=== PATIENT | female | born 1960 ===

== ENCOUNTER 2022-12-29 06:45 | Observation (INO) ==
--- NOTE | 2022-12-29 12:09 | History & Physical Report ---
Date of Service December 29, 2022 Assessment & Plan (1) Nausea: Plan: Unclear cause. Pt transferred for GI to consider ERCP however normal LFTs and no substantial RUQ pain. Will complete workup with MRCP. Stool PCR to assess for infective diarrheal illness NPO Ondansetron for nauseaa (2) Abdominal pain: (3) Anxiety: Plan: Continue Lexapro and duloxetine (4) Asthma: Plan: No current exacerbation suspected Continue Advair diskus or hospital formulary equivalent (5) Constipation: Plan: Given current diarrhea will d/c her docusate (6) GERD (gastroesophageal reflux disease): Plan: Continue pantoprazole, famotidine. Possible cause of symptoms above. (7) Osteoporosis: (8) Tobacco user: Plan: Nicotine patch Discussed smoking cessation (9) Urinary incontinence: (10) Allergic rhinitis: Plan VTE Prophylaxis - low risk Diet - NPO Disposition - observation status to med/tele Admission and Anticipated Discharge Date Admission Date: December 29, 2022 History of Present Illness Chief Complaint: Abdominal pain, nausea vomiting Primary Care Provider: NO PCP Kevin Harry is a 62 year old female who presents as a direct admission from [facility] due to nausea, vomiting, diarrhea, abdominal pain. She reports her symptoms started on Sunday and progressively getting worse. Only able to drink water on Sunday however even this has started causing her problems the last few days. She reports a significant history of thrush although also feels she has this currently but only homogenous white substance on her tongue and nowhere else. She notes some change in taste during that time. Diarrhea episode on Sunday but intermittent since then. When ever she eats she has loose stool - the last time she ate solid food was Sunday. She reportedly had some wheezing and shortness of breath prior to arriving at [facility] ER but this resolved without intervention and she currently denies any shortness of breath. Intermittently having central abdominal pain after eating - she reports having some problems with this ever since she had a cholecystectomy but has been worse recently - no current abdominal pain. In [facility] her CBD was dilated on CT (although was notable suspected due to post cholecystectomy status) and concern with her elevated WBC and abdominal pain for choledocholithiasis with ERCP coverage therefore her case was discussed with gastroenterology here and advised admission under the hospitalist. Allergies Allergy/AdvReac Type Severity Reaction Status Date / Time peanut Allergy Verified 12/29/22 12:18 codeine AdvReac Verified 12/29/22 12:18 metronidazole [From Flagyl] AdvReac Verified 12/29/22 12:18 Home Medications Medication Instructions Recorded Confirmed Type Vitamin D3 1,000 units PO DAILY 12/29/22 12/29/22 History Xyzal 5 mg PO DAILY 12/29/22 12/29/22 History ascorbic acid (vitamin C) 500 mg 500 mg PO DAILY 12/29/22 12/29/22 History tablet (Vitamin C) atorvastatin 40 mg tablet 40 mg PO DAILY 12/29/22 12/29/22 History azelastine 137 mcg (0.1 %) nasal 2 spray intranasal DAILY PRN 12/29/22 12/29/22 History spray aerosol Congestion baclofen 10 mg tablet 10 mg PO TID PRN Muscle Spasm 12/29/22 12/29/22 History ggdnzit-jnystzhgd-sahf 1 tab DAILY 12/29/22 12/29/22 History clotrimazole 10 mg charla 10 mg mucous membrane 5XD 12/29/22 12/29/22 History diclofenac sodium 75 mg 75 mg PO BID PRN Pain 12/29/22 12/29/22 History tablet,delayed release docusate sodium 100 mg capsule 100 mg PO BID 12/29/22 12/29/22 History duloxetine 60 mg capsule,delayed 60 mg PO BID 12/29/22 12/29/22 History release escitalopram oxalate 10 mg tablet 10 mg PO BID 12/29/22 12/29/22 History famotidine 20 mg tablet 20 mg PO BID 12/29/22 12/29/22 History fluticasone 250 mcg-salmeterol 50 1 inh inhalation BID 12/29/22 12/29/22 History mcg/dose blistr powdr for inhalation (Advair Diskus) fluticasone 250 mcg-salmeterol 50 1 inh inhalation BID 12/29/22 12/29/22 History mcg/dose blistr powdr for inhalation (Advair Diskus) gabapentin 600 mg tablet 600 mg PO TID 12/29/22 12/29/22 History montelukast 10 mg tablet 10 mg PO DAILY 12/29/22 12/29/22 History ondansetron 4 mg disintegrating 4 mg PO Q4H PRN Nausea 12/29/22 12/29/22 History tablet pantoprazole 40 mg tablet,delayed 40 mg PO BID 12/29/22 12/29/22 History release Past Med/Surg History Medical History Allergic rhinitis Anxiety Asthma Back pain Constipation Degenerative arthritis Finger pain GERD (gastroesophageal reflux disease) Heart murmur Osteoporosis Rotator cuff tear Tobacco user Urinary incontinence Surgical History History of arthroscopy of shoulder 07/23/2018 and 01/23/2017 History of blepharoplasty 07/12/2022 History of colonoscopy 01/30/2018 History of esophagogastroduodenoscopy Social History Smoking Status: Current every day smoker Cigarettes Per Day: 15; Hx Alcohol Use: Yes Alcohol type: beer Hx Substance Use: No Preferred Language: Citizen Of [place] Communication Ability: Effective Account Underwriter Required: No Beliefs That Will Affect Care: None Current Living Situation: Alone Other Information That Helps Us Care for You: No Feels Safe at Home: Yes Safety Concerns: Feels Safe At This Time Assistive Devices: Glasses Review of Systems Review of Systems: All systems reviewed & are unremarkable except as noted in HPI & below Physical Exam Constitutional: WD/WN, vitals as above Eyes: PERRL, conjunctivae normal, anicteric sclerae Respiratory: normal respiratory effort, lungs clear to auscultation Cardiovascular: RRR, no murmur, no edema Gastrointestinal (Abdomen): Inspection/Auscultation: abdomen normal to inspection; abdomen not distended Percussion/Palpation: + abdomen tender (mild upper) and abdomen soft Musculoskeletal: no cyanosis or clubbing, extremities motor strength 5/5 Skin: no rashes, warm and dry Neurologic: moves all extremities and awake; not confused Psychiatric: A+Ox3, euthymic affect Results & Data Results & Data Vital Signs (Past 12 Hours) Vital Signs Temp Pulse Resp BP Pulse Ox O2 Del Method 12/29/22 11:55 36.7 C 78 18 153/79 H 98 Room Air Laboratory Results SARS COV-2 PCR not detected eGFR 88, Glucose 114, BUN 8.5, Cr 0.77, Total Protein 8.0, Albumin 4.5, Globulin 3.5, A/G 1.3, Calcium 9.1, T Hugo 1.0, Na 129, K 2.8, Cl 98, CO2 21, AGAP 12.8, ALP 72, AST 24, ALT 26, Lactate 1.2, Lipase 58, Mg 1.8, HS Trop 11 -> 12 Hgb 16.4, Hct 45.7, MCV 88.7, MCH 31.8, MCHC 35.9, Plt 530, RBC 5.15, WBC 20.[address] A/P with IV contrast Impression: No acute intra-abdominal or pelvic pathology. Post cholecystectomy CBD dilation and prominent pancreatic duct giving a double duct sign. Further evaluation by MRCP is advised. Medications Administered ER Medications Given (at [place]): Potassium chloride 10 meq IV 06:02 NSS @ 125ml/hr 04:48 Metronidazole 500mg IV 04:57 Cefepime 2g IV 04:57 NSS 1L bolus 03:54 Potassium chloride 10meq IV 03:54 Clotrimazole 10mg PO 00:20 Ondansetron 4mg IV 23:34 NSS 1L bolus 23:35 Code Status & VTE Plan Code Status Full VTE Prophylaxis Plan VTE Prophylaxis will be ordered: No PG Care Time/CCT Total # of Minutes Spent Total Time Spent: 120 Total Time Spent with Patient: Total time spent is greater than 50% in coordination of care (as documented) at patient's floor/unit and/or counseling patient: Coding Level of Care Code 34705 INT INP/OBS CARE 3/75MIN Diagnoses Nausea R11.0 Abdominal pain R10.9 Anxiety F41.9 Asthma J45.909 Constipation K59.00 GERD (gastroesophageal reflux disease) K21.9 Osteoporosis M81.0 Tobacco user Z72.0 Urinary incontinence R32 Allergic rhinitis J30.9
--- NOTE | 2022-12-29 12:36 | XRay Report ---
XR chest 1V portable CLINICAL HISTORY: elevated WBC TECHNIQUE: Single frontal radiograph of the chest was obtained. Comparison: None available at the time of this dictation. FINDINGS: No lines and tubes are seen. The cardiomediastinal silhouette is normal. The lungs are clear. No evid ence of pleural effusion or pneumothorax. IMPRESSION: No acute chest disease. ACT 112: Negative or not required by law. Electronically signed by: Charlie Lemus M.D. 12/29/2022 12:35 PM
[2022-12-29 13:15] LABS: Basophils # (auto) 0.06 K/uL (0-0.2); Basophils % (auto) 0.4 %; Eosinophils # (auto) 0.01 K/uL (0-0.50); Eosinophils % (auto) 0.1 %; Hemoglobin 13.6 g/dl (12.0-16.0); Immature Granulocytes # (auto) 0.04 K/uL (0.01-0.20); Immature Granulocytes % (auto) 0.3 %; Lymphocytes # (auto) 2.58 K/uL (1.2-3.4); Lymphocytes % (auto) 17.4 %; Mean Corpuscular Hemoglobin 31.6 pg (25.0-34.0); Mean Corpuscular Hgb Conc 35.8 g/dL (32.0-36.0); Mean Corpuscular Volume 88.4 fL (80.0-100.0); Mean Platelet Volume 9.5 fL (9.4-12.4); Monocytes # (auto) 1.21 K/uL (0.11-0.59); Monocytes % (auto) 8.1 %; Neutrophils # (auto) 10.96 K/uL (1.40-6.50); Neutrophils % (auto) 73.7 %; Platelet Count 450 K/uL (130-400); RDW Coefficient of Variation 12.9 % (11.5-14.5); RDW Standard Deviation 41.5 fL (36.4-46.3); White Blood Count 14.86 K/ul (4.8-10.8)
[2022-12-29] MEDS ORDERED: LACTATED RINGER'S 1,000 ML IV SCH (13:15)
[2022-12-29 13:32] LABS: Albumin Globulin Ratio 1.5 (0.9-2); Albumin Level 4.1 gm/dl (3.4-5.0); BUN Creatinine Ratio 12.7 (10-20); Bilirubin,Total 0.8 mg/dl (0.2-1.0); Calcium 8.8 mg/dl (8.6-10.3); Creatinine Clr Calc Pharmacy 74.7 ml/min; Est GFR (Non-African American) 97.5 ml/min; Globulin 2.7 gm/dl (2.5-4.0); Magnesium 1.9 mg/dl (1.7-2.4); Potassium 3.5 mmol/L (3.5-5.1); Total Protein 6.8 gm/dl (6.0-8.3)
[2022-12-29 13:41] LABS: INR 0.9 (0.9-1.1); Partial Thromboplastin Time 27.4 Seconds (21.0-31.0); Prothrombin Time 10.3 Seconds (9.0-12.0)
[2022-12-29] MEDS: CLOTRIMAZOLE 10 MG TROCHE BUCCAL SCH ×2 (15:24→20:37)
[2022-12-29 16:21] LABS: Appearance Urine Clear (Clear); Bilirubin Urine Negative (Negative); Blood Urine Negative (Negative); Color Urine Yellow; Glucose Urine UA Negative (Negative); Ketones Urine 4+ (Negative); Leukocyte Esterase Urine Negative (Negative); Nitrite Urine Negative (Negative); Protein Urine Negative (Negative); Specific Gravity Urine 1.026 (1.000-1.030); Urobilinogen Urine Negative (Negative)
[2022-12-29] MEDS ORDERED: ONDANSETRON INJ 2 MG/ML 2 ML VIAL IV PRN (17:59)
[2022-12-29] MEDS: D5W AND 1/2NSS + 20MEQ KCL 20 MEQ/1,000 ML BAG IV SCH (18:06)
--- NOTE | 2022-12-29 19:04 | Magnetic Resonance Report ---
MRCP CLINICAL HISTORY: Common bile duct dilatation. COMPARISON STUDY: Abdominal CT dated 12/29/2022. TECHNIQUE: Abdominal MRCP is performed utilizing various T2-weighted sequences in the axial and coron al planes. IV contrast was not administered for this examination. 3-D reformats are created and asses sed. Diffusion-weighted imaging was performed. The examination is degraded by motion artifact. FINDINGS: The gallbladder is surgically absent. There is no intrahepatic biliary ductal dilatation. The common bile duct is dilated measuring up to 9 mm in diameter. No true luminal filling defects are seen to gomez ggest choledocholithiasis. The pancreatic duct is normal in caliber. The unenhanced liver, spleen, adrenal glands, and pancreas are grossly unremarkable. The kidneys are normal in size and without hydronephrosis. A 10 mm cyst is noted in the left kidney. There is no abdo hector ascites. No pleural effusion is seen. The abdominal aorta is normal in course and caliber. No b owel obstruction is identified. IMPRESSION: 1. Normal MRCP noting status post cholecystectomy. 2. Mild dilatation of the common bile duct is likely related to prior cholecystectomy. There is no ev idence of choledocholithiasis. Dictated: 12/29/2022 5:40 PM Transcribed: 12/29/2022 6:00 PM Saran [id number] Cristiana [id number] Electronically signed by: Ron White M.D. 12/29/2022 7:03 PM
[2022-12-29] MEDS: DULoxetine HCL 60 MG CAP PO SCH (20:39)
[2022-12-29] MEDS: ESCITALOPRAM OXALATE 10 MG TAB PO SCH (20:40)
[2022-12-29] MEDS: GABAPENTIN 600 MG TAB PO SCH (20:40)
[2022-12-29] MEDS: ACETAMINOPHEN 500 MG TAB PO PRN (20:40)
[2022-12-29] MEDS: FAMOTIDINE 20 MG TAB PO SCH (20:40)
[2022-12-29] MEDS: MELATONIN 3 MG TAB PO PRN (20:40)
[2022-12-29] MEDS: PANTOprazole 40 MG TAB PO SCH (21:09)
[2022-12-29 23:43] LABS: Adenovirus F 40/41 PCR Not Detected (NotDetected); Astrovirus PCR Not Detected (NotDetected); Campylobacter PCR Not Detected (NotDetected); Cryptosporidium PCR Not Detected (NotDetected); Cyclospora cayetanensis PCR Not Detected (NotDetected); Entamoeba histolytica PCR Not Detected (NotDetected); Enteroaggregative E.coli(EAEC) Not Detected (NotDetected); Enteropathogenic E.coli (EPEC) Not Detected (NotDetected); Enterotoxigenic E.coli (ETEC) Not Detected (NotDetected); Giardia lamblia PCR Not Detected (NotDetected); Norovirus GI/GII PCR Not Detected (NotDetected); Plesiomonas shigelloides PCR Not Detected (NotDetected); Rotavirus A PCR Not Detected (NotDetected); Salmonella PCR Not Detected (NotDetected); Sapovirus PCR Not Detected (NotDetected); Shiga-like Toxin E.coli (STEC) Not Detected (NotDetected); Shigella/Enteroinvasive E.coli Not Detected (NotDetected); Vibrio cholerae PCR Not Detected (NotDetected); Vibrio species PCR Not Detected (NotDetected); Yersinia enterocolitica PCR Not Detected (NotDetected)
[2022-12-30] MEDS: CLOTRIMAZOLE 10 MG TROCHE BUCCAL SCH ×6 (01:06→22:10)
[2022-12-30] MEDS: D5W AND 1/2NSS + 20MEQ KCL 20 MEQ/1,000 ML BAG IV SCH ×3 (02:43→18:10)
[2022-12-30 07:11] LABS: Basophils # (auto) 0.11 K/uL (0-0.2); Eosinophils # (auto) 0.11 K/uL (0-0.50); Hematocrit (blood only) 35.2 % (37.0-47.0); Hemoglobin 12.7 g/dl (12.0-16.0); Immature Granulocytes # (auto) 0.03 K/uL (0.01-0.20); Immature Granulocytes % (auto) 0.3 %; Lymphocytes # (auto) 3.08 K/uL (1.2-3.4); Lymphocytes % (auto) 27.6 %; Mean Corpuscular Hemoglobin 32.2 pg (25.0-34.0); Mean Corpuscular Hgb Conc 36.1 g/dL (32.0-36.0); Mean Corpuscular Volume 89.1 fL (80.0-100.0); Mean Platelet Volume 9.6 fL (9.4-12.4); Monocytes # (auto) 1.28 K/uL (0.11-0.59); Monocytes % (auto) 11.5 %; Neutrophils # (auto) 6.56 K/uL (1.40-6.50); Neutrophils % (auto) 58.6 %; Platelet Count 389 K/uL (130-400); RDW Coefficient of Variation 12.5 % (11.5-14.5); Red Blood Count 3.95 M/uL (4.20-5.40); White Blood Count 11.17 K/ul (4.8-10.8)
[2022-12-30 07:32] LABS: Albumin Globulin Ratio 1.5 (0.9-2); Albumin Level 3.3 gm/dl (3.4-5.0); BUN Creatinine Ratio 10.9 (10-20); Bilirubin,Total 0.6 mg/dl (0.2-1.0); Calcium 8.2 mg/dl (8.6-10.3); Creatinine Clr Calc Pharmacy 85.5 ml/min; Est GFR (African American) 118.2 ml/min; Est GFR (Non-African American) 101.9 ml/min; Globulin 2.2 gm/dl (2.5-4.0); Potassium 3.7 mmol/L (3.5-5.1); Total Protein 5.5 gm/dl (6.0-8.3)
[2022-12-30] MEDS: ATORVASTATIN 40 MG TAB PO SCH (07:50)
[2022-12-30] MEDS: GABAPENTIN 600 MG TAB PO SCH ×3 (07:50→20:25)
[2022-12-30] MEDS: ESCITALOPRAM OXALATE 10 MG TAB PO SCH ×2 (07:50→20:25)
[2022-12-30] MEDS: MONTELUKAST SODIUM 10 MG TABLET PO SCH (07:50)
[2022-12-30] MEDS: PANTOprazole 40 MG TAB PO SCH ×2 (07:50→20:25)
[2022-12-30] MEDS: DULoxetine HCL 60 MG CAP PO SCH ×2 (07:51→20:25)
[2022-12-30] MEDS: FAMOTIDINE 20 MG TAB PO SCH ×2 (07:51→20:25)
[2022-12-30] MEDS: FLUTICASONE/VILANTEROL 200/25MCG 14 PUFFS/INHALER INH SCH (07:52)
[2022-12-30] MEDS: NICOTINE 21 MG/24 HR TDSY TD SCH (07:52)
--- NOTE | 2022-12-30 10:21 | Gastrointestinal Consultation ---
Date of Consultation December 30, 2022 Assessment & Plan (1) Abdominal pain: I think she probably had food poisoning at the onset of her problems. She is describing more of a globus sensation to me and has had EGD for it in the past. I don't think repeat is necessary as yet because she can swallow she just "feels a cotton ball". Since she has had yeast in her esophagus I see no problem treating her empirically for trevor so she can get better and get out of here. This seems to be the last thing keeping her in the hospital. History of Present Illness Reason for Consultation: abominal pain Attending Physician: Farzana Dave MD History of Present Illness 62 year old female who tells me that this past Sunday she developed abdominal pain and diarrhea. She blames it on having a few drinks. She ate "wings and pizza" for lunch that day. She had profuse diarrhea and nausea but no vomiting. She improved slowly over the next two days and was able to eat Sunday and Sunday, albeit only a small amount. It seems that she got worse on and was seen in ER at [facility]. ER doctor called me about transfer for ERCP but when he told me her LFT's were normal I told him that wasn't necessary. He then elaborated that she had these symptoms and abdominal pain without a cause and they had no GI available. I suggested he talk to Hospitalist and so she was transferred. Today she is feeling well. She also has this "cotton ball" in her throat. She has had EGD for this before and was told she had yeast in her esop hagus. She does not have any pain when she swallows though. Food will go down though. Allergies Allergy/AdvReac Type Severity Reaction Status Date / Time peanut Allergy Verified 12/29/22 12:18 codeine AdvReac Verified 12/29/22 12:18 metronidazole [From Flagyl] AdvReac Verified 12/29/22 12:18 Home Medications Medication Instructions Recorded Confirmed Type Vitamin D3 1,000 units PO DAILY 12/29/22 12/29/22 History Xyzal 5 mg PO DAILY 12/29/22 12/29/22 History ascorbic acid (vitamin C) 500 mg 500 mg PO DAILY 12/29/22 12/29/22 History tablet (Vitamin C) atorvastatin 40 mg tablet 40 mg PO DAILY 12/29/22 12/29/22 History azelastine 137 mcg (0.1 %) nasal 2 spray intranasal DAILY PRN 12/29/22 12/29/22 History spray aerosol Congestion baclofen 10 mg tablet 10 mg PO TID PRN Muscle Spasm 12/29/22 12/29/22 History eatsbue-ehbzwvhgv-vscy 1 tab DAILY 12/29/22 12/29/22 History clotrimazole 10 mg charla 10 mg mucous membrane 5XD 12/29/22 12/29/22 History diclofenac sodium 75 mg 75 mg PO BID PRN Pain 12/29/22 12/29/22 History tablet,delayed release docusate sodium 100 mg capsule 100 mg PO BID 12/29/22 12/29/22 History duloxetine 60 mg capsule,delayed 60 mg PO BID 12/29/22 12/29/22 History release escitalopram oxalate 10 mg tablet 10 mg PO BID 12/29/22 12/29/22 History famotidine 20 mg tablet 20 mg PO BID 12/29/22 12/29/22 History fluticasone 250 mcg-salmeterol 50 1 inh inhalation BID 12/29/22 12/29/22 History mcg/dose blistr powdr for inhalation (Advair Diskus) fluticasone 250 mcg-salmeterol 50 1 inh inhalation BID 12/29/22 12/29/22 History mcg/dose blistr powdr for inhalation (Advair Diskus) gabapentin 600 mg tablet 600 mg PO TID 12/29/22 12/29/22 History montelukast 10 mg tablet 10 mg PO DAILY 12/29/22 12/29/22 History ondansetron 4 mg disintegrating 4 mg PO Q4H PRN Nausea 12/29/22 12/29/22 History tablet pantoprazole 40 mg tablet,delayed 40 mg PO BID 12/29/22 12/29/22 History release Patient History Medical History Allergic rhinitis Anxiety Asthma Back pain Constipation Degenerative arthritis Finger pain GERD (gastroesophageal reflux disease) Heart murmur Osteoporosis Rotator cuff tear Tobacco user Urinary incontinence Surgical History History of arthroscopy of shoulder 07/23/2018 and 01/23/2017 History of blepharoplasty 07/12/2022 History of colonoscopy 01/30/2018 History of esophagogastroduodenoscopy 2* Social History Smoking Status: Current every day smoker Cigarettes Per Day: 15; Hx Alcohol Use: Yes Alcohol type: beer Hx Substance Use: No Preferred Language: Thai Communication Ability: Effective Dress Cutter Required: No Beliefs That Will Affect Care: None Current Living Situation: Alone Other Information That Helps Us Care for You: No Feels Safe at Home: Yes Safety Concerns: Feels Safe At This Time Assistive Devices: Glasses Review of Systems Review of Systems: All systems reviewed & are unremarkable except as noted in HPI & below Physical Exam Constitutional: WD/WN, vitals as above no acute distress Eyes: PERRL, conjunctivae normal, anicteric sclerae ENMT: external ear and nose normal, oropharynx normal Neck: trachea midline, no thyromegaly Respiratory: normal respiratory effort, lungs clear to auscultation Cardiovascular: RRR, no murmur, no edema Gastrointestinal (Abdomen): normal bowel sounds, soft, nontender, no hepatosplenomegaly Musculoskeletal: Extremities: no cyanosis and no clubbing Skin: no rashes, warm and dry Neurologic: PERRL, EOMI, accommodation nl, no face palsy, no dysarthria Psychiatric: Orientation: alert and oriented x 3 Results & Data Vital Signs (Past 12 Hours) Vital Signs Temp Pulse Pulse Resp BP BP Pulse Ox 12/30/22 08:01 36.5 C 74 18 162/85 H 98 12/30/22 07:35 69 12/30/22 03:11 36.6 C 79 18 134/70 96 12/30/22 01:41 73 12/30/22 01:41 12/29/22 22:33 36.8 C 70 18 156/74 H 94 O2 Del Method 12/30/22 08:01 Room Air 12/30/22 07:35 12/30/22 03:11 Room Air 12/30/22 01:41 12/30/22 01:41 Room Air 12/29/22 22:33 Room Air Laboratory Results 12/30/22 12/30/22 12/29/22 Range/Units 06:33 06:33 22:15 WBC 11.17 H (4.8-10.8) K/ul RBC 3.95 L (4.20-5.40) M/uL Hgb 12.7 (12.0-16.0) g/dl Hct 35.2 L (37.0-47.0) % MCV 89.1 (80.0-100.0) fL MCH 32.2 (25.0-34.0) pg MCHC 36.1 H (32.0-36.0) g/dL RDW Std Deviation 41.0 (36.4-46.3) fL RDW Coeff of Saúl 12.5 (11.5-14.5) % Plt Count 389 (130-400) K/uL MPV 9.6 (9.4-12.4) fL Immature Gran % (Auto) 0.3 % Neut % (Auto) 58.6 % Lymph % (Auto) 27.6 % [place] % (Auto) 11.5 % Eos % (Auto) 1.0 % Baso % (Auto) 1.0 % Neut # (Auto) 6.56 H (1.40-6.50) K/uL Lymph # (Auto) 3.08 (1.2-3.4) K/uL [place] # (Auto) 1.28 H (0.11-0.59) K/uL Eos # (Auto) 0.11 (0-0.50) K/uL Baso # (Auto) 0.11 (0-0.2) K/uL Immature Gran # (Auto) 0.03 (0.01-0.20) K/uL PT (9.0-12.0) Seconds INR (0.9-1.1) APTT (21.0-31.0) Seconds PTT Ratio Sodium 138 (136-145) mmol/L Potassium 3.7 (3.5-5.1) mmol/L Chloride 112 H (98-107) mmol/L Carbon Dioxide 23 (21-32) mmol/L Anion Gap 3 (3-11) BUN 6 (6-23) mg/dl Creatinine 0.55 L (0.6-1.2) mg/dl Est Cr Clr Drug Dosing 85.5 ml/min Est GFR ( Amer) 118.2 ml/min Est GFR (Non-Af Amer) 101.9 ml/min BUN/Creatinine Ratio 10.9 (10-20) Glucose 116 H (70-99(Fasting)) mg/dl Lactate (0.4-2.0) mmol/L Calcium 8.2 L (8.6-10.3) mg/dl Magnesium (1.7-2.4) mg/dl Total Bilirubin 0.6 (0.2-1.0) mg/dl AST 16 (13-39) U/L ALT 11 (7-52) U/L Alkaline Phosphatase 45 (34-104) U/L Total Protein 5.5 L (6.0-8.3) gm/dl Albumin 3.3 L (3.4-5.0) gm/dl Globulin 2.2 L (2.5-4.0) gm/dl Albumin/Globulin Ratio 1.5 (0.9-2) Lipase (11-82) U/L Procalcitonin (0-0.5) ng/ml Urine Color Urine Appearance (Clear) Urine pH (4.5-7.5) Ur Specific [place] (1.000-1.030) Urine Protein (Negative) Urine Glucose (UA) (Negative) Urine Ketones (Negative) Urine Blood (Negative) Urine Nitrite (Negative) Urine Bilirubin (Negative) Urine Urobilinogen (Negative) Ur Leukocyte Esterase (Negative) Stl C. cayetanensis PCR Not Detected (NotDetected) Stool Rotavirus A PCR Not Detected (NotDetected) Stl Adenov F 40/41 PCR Not Detected (NotDetected) Stool Astrovirus (PCR) Not Detected (NotDetected) Stool Campylobacter PCR Not Detected (NotDetected) Stool Cryptosporidium PCR Not Detected (NotDetected) Stl E.coli Shiga Tox PCR Not Detected (NotDetected) Stl Enterotoxigenic E PCR Not Detected (NotDetected) Stool EPEC (PCR) Not Detected (NotDetected) Stool EAEC (PCR) Not Detected (NotDetected) Stl E. histolytica PCR Not Detected (NotDetected) Stool Giardia Lamblia PCR Not Detected (NotDetected) Stool Salmonella PCR Not Detected (NotDetected) Stool Sapovirus (PCR) Not Detected (NotDetected) Stl P. shigelloides PCR Not Detected (NotDetected) Stl Shigella/EIEC PCR Not Detected (NotDetected) St Y.enterocolitica PCR Not Detected (NotDetected) Stool Vibrio (PCR) Not Detected (NotDetected) Stl Vibrio cholerae PCR Not Detected (NotDetected) Stl Norovirus GI/GII PCR Not Detected (NotDetected) Hepatitis C Ab (EIA) 12/29/22 12/29/22 12/29/22 Range/Units 15:27 12:40 12:24 WBC (4.8-10.8) K/ul RBC (4.20-5.40) M/uL Hgb (12.0-16.0) g/dl Hct (37.0-47.0) % MCV (80.0-100.0) fL MCH (25.0-34.0) pg MCHC (32.0-36.0) g/dL RDW Std Deviation (36.4-46.3) fL RDW Coeff of Saúl (11.5-14.5) % Plt Count (130-400) K/uL MPV (9.4-12.4) fL Immature Gran % (Auto) % Neut % (Auto) % Lymph % (Auto) % [place] % (Auto) % Eos % (Auto) % Baso % (Auto) % Neut # (Auto) (1.40-6.50) K/uL Lymph # (Auto) (1.2-3.4) K/uL [place] # (Auto) (0.11-0.59) K/uL Eos # (Auto) (0-0.50) K/uL Baso # (Auto) (0-0.2) K/uL Immature Gran # (Auto) (0.01-0.20) K/uL PT (9.0-12.0) Seconds INR (0.9-1.1) APTT (21.0-31.0) Seconds PTT Ratio Sodium (136-145) mmol/L Potassium (3.5-5.1) mmol/L Chloride (98-107) mmol/L Carbon Dioxide (21-32) mmol/L Anion Gap (3-11) BUN (6-23) mg/dl Creatinine (0.6-1.2) mg/dl Est Cr Clr Drug Dosing ml/min Est GFR ( Amer) ml/min Est GFR (Non-Af Amer) ml/min BUN/Creatinine Ratio (10-20) Glucose (70-99(Fasting)) mg/dl Lactate 1.3 (0.4-2.0) mmol/L Calcium (8.6-10.3) mg/dl Magnesium (1.7-2.4) mg/dl Total Bilirubin (0.2-1.0) mg/dl AST (13-39) U/L ALT (7-52) U/L Alkaline Phosphatase (34-104) U/L Total Protein (6.0-8.3) gm/dl Albumin (3.4-5.0) gm/dl Globulin (2.5-4.0) gm/dl Albumin/Globulin Ratio (0.9-2) Lipase (11-82) U/L Procalcitonin (0-0.5) ng/ml Urine Color Yellow Urine Appearance Clear (Clear) Urine pH 6.0 (4.5-7.5) Ur Specific [place] 1.026 (1.000-1.030) Urine Protein Negative (Negative) Urine Glucose (UA) Negative (Negative) Urine Ketones 4+ H (Negative) Urine Blood Negative (Negative) Urine Nitrite Negative (Negative) Urine Bilirubin Negative (Negative) Urine Urobilinogen Negative (Negative) Ur Leukocyte Esterase Negative (Negative) Stl C. cayetanensis PCR (NotDetected) Stool Rotavirus A PCR (NotDetected) Stl Adenov F 40/41 PCR (NotDetected) Stool Astrovirus (PCR) (NotDetected) Stool Campylobacter PCR (NotDetected) Stool Cryptosporidium PCR (NotDetected) Stl E.coli Shiga Tox PCR (NotDetected) Stl Enterotoxigenic E PCR (NotDetected) Stool EPEC (PCR) (NotDetected) Stool EAEC (PCR) (NotDetected) Stl E. histolytica PCR (NotDetected) Stool Giardia Lamblia PCR (NotDetected) Stool Salmonella PCR (NotDetected) Stool Sapovirus (PCR) (NotDetected) Stl P. shigelloides PCR (NotDetected) Stl Shigella/EIEC PCR (NotDetected) St Y.enterocolitica PCR (NotDetected) Stool Vibrio (PCR) (NotDetected) Stl Vibrio cholerae PCR (NotDetected) Stl Norovirus GI/GII PCR (NotDetected) Hepatitis C Ab (EIA) Pending 12/29/22 12/29/22 12/29/22 Range/Units 12:24 12:24 12:24 WBC (4.8-10.8) K/ul RBC (4.20-5.40) M/uL Hgb (12.0-16.0) g/dl Hct (37.0-47.0) % MCV (80.0-100.0) fL MCH (25.0-34.0) pg MCHC (32.0-36.0) g/dL RDW Std Deviation (36.4-46.3) fL RDW Coeff of Saúl (11.5-14.5) % Plt Count (130-400) K/uL MPV (9.4-12.4) fL Immature Gran % (Auto) % Neut % (Auto) % Lymph % (Auto) % [place] % (Auto) % Eos % (Auto) % Baso % (Auto) % Neut # (Auto) (1.40-6.50) K/uL Lymph # (Auto) (1.2-3.4) K/uL [place] # (Auto) (0.11-0.59) K/uL Eos # (Auto) (0-0.50) K/uL Baso # (Auto) (0-0.2) K/uL Immature Gran # (Auto) (0.01-0.20) K/uL PT 10.3 (9.0-12.0) Seconds INR 0.9 (0.9-1.1) APTT 27.4 (21.0-31.0) Seconds PTT Ratio 1.0 Sodium 136 (136-145) mmol/L Potassium 3.5 (3.5-5.1) mmol/L Chloride 108 H (98-107) mmol/L Carbon Dioxide 21 (21-32) mmol/L Anion Gap 7 (3-11) BUN 8 (6-23) mg/dl Creatinine 0.63 (0.6-1.2) mg/dl Est Cr Clr Drug Dosing 74.7 ml/min Est GFR ( Amer) 113.0 ml/min Est GFR (Non-Af Amer) 97.5 ml/min BUN/Creatinine Ratio 12.7 (10-20) Glucose 102 H (70-99(Fasting)) mg/dl Lactate (0.4-2.0) mmol/L Calcium 8.8 (8.6-10.3) mg/dl Magnesium 1.9 (1.7-2.4) mg/dl Total Bilirubin 0.8 (0.2-1.0) mg/dl AST 18 (13-39) U/L ALT 14 (7-52) U/L Alkaline Phosphatase 50 (34-104) U/L Total Protein 6.8 (6.0-8.3) gm/dl Albumin 4.1 (3.4-5.0) gm/dl Globulin 2.7 (2.5-4.0) gm/dl Albumin/Globulin Ratio 1.5 (0.9-2) Lipase 42 (11-82) U/L Procalcitonin < 0.05 (0-0.5) ng/ml Urine Color Urine Appearance (Clear) Urine pH (4.5-7.5) Ur Specific [place] (1.000-1.030) Urine Protein (Negative) Urine Glucose (UA) (Negative) Urine Ketones (Negative) Urine Blood (Negative) Urine Nitrite (Negative) Urine Bilirubin (Negative) Urine Urobilinogen (Negative) Ur Leukocyte Esterase (Negative) Stl C. cayetanensis PCR (NotDetected) Stool Rotavirus A PCR (NotDetected) Stl Adenov F 40/41 PCR (NotDetected) Stool Astrovirus (PCR) (NotDetected) Stool Campylobacter PCR (NotDetected) Stool Cryptosporidium PCR (NotDetected) Stl E.coli Shiga Tox PCR (NotDetected) Stl Enterotoxigenic E PCR (NotDetected) Stool EPEC (PCR) (NotDetected) Stool EAEC (PCR) (NotDetected) Stl E. histolytica PCR (NotDetected) Stool Giardia Lamblia PCR (NotDetected) Stool Salmonella PCR (NotDetected) Stool Sapovirus (PCR) (NotDetected) Stl P. shigelloides PCR (NotDetected) Stl Shigella/EIEC PCR (NotDetected) St Y.enterocolitica PCR (NotDetected) Stool Vibrio (PCR) (NotDetected) Stl Vibrio cholerae PCR (NotDetected) Stl Norovirus GI/GII PCR (NotDetected) Hepatitis C Ab (EIA) 12/29/22 Range/Units 12:24 WBC 14.86 H (4.8-10.8) K/ul RBC 4.30 (4.20-5.40) M/uL Hgb 13.6 (12.0-16.0) g/dl Hct 38.0 (37.0-47.0) % MCV 88.4 (80.0-100.0) fL MCH 31.6 (25.0-34.0) pg MCHC 35.8 (32.0-36.0) g/dL RDW Std Deviation 41.5 (36.4-46.3) fL RDW Coeff of Saúl 12.9 (11.5-14.5) % Plt Count 450 H (130-400) K/uL MPV 9.5 (9.4-12.4) fL Immature Gran % (Auto) 0.3 % Neut % (Auto) 73.7 % Lymph % (Auto) 17.4 % [place] % (Auto) 8.1 % Eos % (Auto) 0.1 % Baso % (Auto) 0.4 % Neut # (Auto) 10.96 H (1.40-6.50) K/uL Lymph # (Auto) 2.58 (1.2-3.4) K/uL [place] # (Auto) 1.21 H (0.11-0.59) K/uL Eos # (Auto) 0.01 (0-0.50) K/uL Baso # (Auto) 0.06 (0-0.2) K/uL Immature Gran # (Auto) 0.04 (0.01-0.20) K/uL PT (9.0-12.0) Seconds INR (0.9-1.1) APTT (21.0-31.0) Seconds PTT Ratio Sodium (136-145) mmol/L Potassium (3.5-5.1) mmol/L Chloride (98-107) mmol/L Carbon Dioxide (21-32) mmol/L Anion Gap (3-11) BUN (6-23) mg/dl Creatinine (0.6-1.2) mg/dl Est Cr Clr Drug Dosing ml/min Est GFR ( Amer) ml/min Est GFR (Non-Af Amer) ml/min BUN/Creatinine Ratio (10-20) Glucose (70-99(Fasting)) mg/dl Lactate (0.4-2.0) mmol/L Calcium (8.6-10.3) mg/dl Magnesium (1.7-2.4) mg/dl Total Bilirubin (0.2-1.0) mg/dl AST (13-39) U/L ALT (7-52) U/L Alkaline Phosphatase (34-104) U/L Total Protein (6.0-8.3) gm/dl Albumin (3.4-5.0) gm/dl Globulin (2.5-4.0) gm/dl Albumin/Globulin Ratio (0.9-2) Lipase (11-82) U/L Procalcitonin (0-0.5) ng/ml Urine Color Urine Appearance (Clear) Urine pH (4.5-7.5) Ur Specific [place] (1.000-1.030) Urine Protein (Negative) Urine Glucose (UA) (Negative) Urine Ketones (Negative) Urine Blood (Negative) Urine Nitrite (Negative) Urine Bilirubin (Negative) Urine Urobilinogen (Negative) Ur Leukocyte Esterase (Negative) Stl C. cayetanensis PCR (NotDetected) Stool Rotavirus A PCR (NotDetected) Stl Adenov F 40/41 PCR (NotDetected) Stool Astrovirus (PCR) (NotDetected) Stool Campylobacter PCR (NotDetected) Stool Cryptosporidium PCR (NotDetected) Stl E.coli Shiga Tox PCR (NotDetected) Stl Enterotoxigenic E PCR (NotDetected) Stool EPEC (PCR) (NotDetected) Stool EAEC (PCR) (NotDetected) Stl E. histolytica PCR (NotDetected) Stool Giardia Lamblia PCR (NotDetected) Stool Salmonella PCR (NotDetected) Stool Sapovirus (PCR) (NotDetected) Stl P. shigelloides PCR (NotDetected) Stl Shigella/EIEC PCR (NotDetected) St Y.enterocolitica PCR (NotDetected) Stool Vibrio (PCR) (NotDetected) Stl Vibrio cholerae PCR (NotDetected) Stl Norovirus GI/GII PCR (NotDetected) Hepatitis C Ab (EIA) Diagnostic Findings Chest X-Ray 12/29/22 12:11 XR chest 1V portable CLINICAL HISTORY: elevated WBC TECHNIQUE: Single frontal radiograph of the chest was obtained. Comparison: None available at the time of this dictation. FINDINGS: No lines and tubes are seen. The cardiomediastinal silhouette is normal. The lungs are clear. No evidence of pleural effusion or pneumothorax. IMPRESSION: No acute chest disease. ACT 112: Negative or not required by law. Electronically signed by: Charlie Lemus M.D. 12/29/2022 12:35 PM Cholangiopancreatography MRI 12/29/22 13:05 MRCP CLINICAL HISTORY: Common bile duct dilatation. COMPARISON STUDY: Abdominal CT dated 12/29/2022. TECHNIQUE: Abdominal MRCP is performed utilizing various T2-weighted sequences in the axial and coronal planes. IV contrast was not administered for this examination. 3-D reformats are created and assessed. Diffusion-weighted imaging was performed. The examination is degraded by motion artifact. FINDINGS: The gallbladder is surgically absent. There is no intrahepatic biliary ductal dilatation. The common bile duct is dilated measuring up to 9 mm in diameter. No true luminal filling defects are seen to suggest choledocholithiasis. The pancreatic duct is normal in caliber. The unenhanced liver, spleen, adrenal glands, and pancreas are grossly unremarkable. The kidneys are normal in size and without hydronephrosis. A 10 mm cyst is noted in the left kidney. There is no abdominal ascites. No pleural effusion is seen. The abdominal aorta is normal in course and caliber. No bowel obstruction is identified. IMPRESSION: 1. Normal MRCP noting status post cholecystectomy. 2. Mild dilatation of the common bile duct is likely related to prior cholecystectomy. There is no evidence of choledocholithiasis. Dictated: 12/29/2022 5:40 PM Transcribed: 12/29/2022 6:00 PM Saran [id number] KINA_Miguelangel [id number] Electronically signed by: Ron White M.D. 12/29/2022 7:03 PM
--- NOTE | 2022-12-30 10:25 | Communication Note ---
Date of Service: December 30, 2022 Conflicts on diflucan. Already on mycelex charla's. I am not certain if that will also handle esophageal trevor but she does swallow the liquid as it disso lves so will leave her with that.
--- NOTE | 2022-12-30 11:10 | Hospitalist Progress Note ---
Date of Service December 30, 2022 Assessment & Plan (1) Nausea: Plan: Unclear cause, possibly gastritis from food poisoning. She said it started after eating chicken wings Pt transferred for GI to consider ERCP however normal LFTs and no substantial RUQ pain. MRCP normal (2) Globus pharyngeus: Plan: Globus sensation, according to patient a feeling of cotton wool in her throat has had esophageal candidiasis in the past No plans for EGD per GI continue treatment for thrush with Clotrimazole troches (3) Abdominal pain: Plan: MRCP negative for choledocholithiasis pain is now resolved (4) Anxiety: Plan: Continue Lexapro and duloxetine (5) Asthma: Plan: No current exacerbation suspected Continue Advair diskus or hospital formulary equivalent (6) Constipation: Plan: Given current diarrhea will d/c her docusate (7) GERD (gastroesophageal reflux disease): Plan: Continue pantoprazole, famotidine. Possible cause of symptoms above. (8) Osteoporosis: (9) Tobacco user: Plan: Nicotine patch Discussed smoking cessation (10) Urinary incontinence: (11) Allergic rhinitis: Plan VTE Prophylaxis - low risk Diet - NPO Disposition - hopefully d/c in the next 24 hrs Admission and Anticipated Discharge Date Admission Date: December 29, 2022 Subjective patient seen and examined, still complains of cotton feel in her throat Review of Systems Review of Systems: All systems reviewed are negative, apart from the ones contained in the history. Physical Exam Physical Exam: The patient is awake, alert and oriented 3, well developed and well nourished, normocephalic and atraumatic, lying in bed and in no acute distress. HEENT--PERRL, EOMI, mucous membranes and oropharynx mildly dry Neck--supple. No JVD. No bruits. Thyroid normal, trachea midline, no adenopathy. Heart--normal S1 and S2. No murmurs, rubs or gallops. Lungs--clear bilaterally, no respiratory distress, no accessory muscle use. Abdomen--normal bowel sounds and soft. Mild epigastric and left sided abdominal pain Extremities--no cyanosis or clubbing. No edema. Dermatologic--normal skin turgor, normal color, no abnormal lymph nodes, no rash. Neurologic--cranial nerves II through XII grossly intact. Rheumatologic--normal range of motion. Psychiatric--normal affect. Results & Data Results & Data Vital Signs (Past 12 Hours) Vital Signs Temp Pulse Pulse Resp BP Pulse Ox O2 Del Method 12/30/22 08:01 97.7 F 74 18 162/85 H 98 Room Air 12/30/22 07:35 69 12/30/22 03:11 97.9 F 79 18 134/70 96 Room Air 12/30/22 01:41 73 12/30/22 01:41 Room Air PG Care Time/CCT Total # of Minutes Spent Total Time Spent with Patient: Total time spent is greater than 50% in coordination of care (as documented) at patient's floor/unit and/or counseling patient: Coding Level of Care Code 75851 SUB INP/OBS CARE 2/35MIN Diagnoses Nausea R11.0 Globus pharyngeus R09.89 Abdominal pain R10.9 Anxiety F41.9 Asthma J45.909 Constipation K59.00 GERD (gastroesophageal reflux disease) K21.9 Osteoporosis M81.0 Tobacco user Z72.0 Urinary incontinence R32 Allergic rhinitis J30.9 Time Spent (min) 35
[2022-12-30] MEDS: ACETAMINOPHEN 500 MG TAB PO PRN (22:10)
[2022-12-30] MEDS: MELATONIN 3 MG TAB PO PRN (22:11)
[2022-12-30] MEDS ORDERED: Nursing to Pharmacy Communication SCH (22:30)
[2022-12-31] MEDS: D5W AND 1/2NSS + 20MEQ KCL 20 MEQ/1,000 ML BAG IV SCH ×2 (02:21→13:04)
[2022-12-31] MEDS: CLOTRIMAZOLE 10 MG TROCHE BUCCAL SCH ×2 (06:16→13:04)
--- NOTE | 2022-12-31 06:52 | Gastroenterology Progress Note ---
Date of Service December 31, 2022 Assessment & Plan (1) Globus pharyngeus: Plan: Symptoms have improved. Maybe responding to Mycelex? Okay with me to discharge Admission and Anticipated Discharge Date Admission Date: December 29, 2022 Subjective Feels much better. "Cotton ball in throat" is gone Physical Exam Physical Exam: She looks well Results & Data Vital Signs (Past 12 Hours) Vital Signs Temp Pulse Pulse Resp BP BP Pulse Ox 12/31/22 03:10 36.5 C 68 14 125/75 125/75 93 12/30/22 22:00 73 12/30/22 22:04 36.6 C 73 18 126/77 94 12/30/22 19:41 36.8 C 81 18 138/82 94 O2 Del Method 12/31/22 03:10 Room Air 12/30/22 22:00 12/30/22 22:04 Room Air 12/30/22 19:41 Room Air
[2022-12-31] MEDS: GABAPENTIN 600 MG TAB PO SCH (08:09)
[2022-12-31] MEDS: MONTELUKAST SODIUM 10 MG TABLET PO SCH (08:09)
[2022-12-31] MEDS: DULoxetine HCL 60 MG CAP PO SCH (08:09)
[2022-12-31] MEDS: ESCITALOPRAM OXALATE 10 MG TAB PO SCH (08:09)
[2022-12-31] MEDS: ATORVASTATIN 40 MG TAB PO SCH (08:09)
[2022-12-31] MEDS: FAMOTIDINE 20 MG TAB PO SCH (08:09)
[2022-12-31] MEDS: PANTOprazole 40 MG TAB PO SCH (08:10)
[2022-12-31] MEDS: FLUTICASONE/VILANTEROL 200/25MCG 14 PUFFS/INHALER INH SCH (08:10)
[2022-12-31] MEDS: NICOTINE 21 MG/24 HR TDSY TD SCH (08:14)
--- NOTE | 2022-12-31 13:16 | Discharge Summary ---
Date of Service December 31, 2022 Admission HPI Per Admitting Provider Kevin Harry is a 62 year old female who presents as a direct admission from [facility] due to nausea, vomiting, diarrhea, abdominal pain. She reports her symptoms started on Sunday and progressively getting worse. Only able to drink water on Sunday however even this has started causing her problems the last few days. She reports a significant history of thrush although also feels she has this currently but only homogenous white substance on her tongue and nowhere else. She notes some change in taste during that time. Diarrhea episode on Sunday but intermittent since then. When ever she eats she has loose stool - the last time she ate solid food was Sunday. She reportedly had some wheezing and shortness of breath prior to arriving at [facility] but this resolved without intervention and she currently denies any shortness of breath. Intermittently having central abdominal pain after eating - she reports having some problems with this ever since she had a cholecystectomy but has been worse recently - no current abdominal pain. In [facility] her CBD was dilated on CT (although was notable suspected due to post cholecystectomy status) and concern with her elevated WBC and abdominal pain for choledocholithiasis with ERCP coverage therefore her case was discussed with gastroenterology here and advised admission under the hospitalist. Principal Diagnosis acute gastritis Discharge Exam The patient is awake, alert and oriented 3, well developed and well nourished, normocephalic and atraumatic, lying in bed and in no acute distress. HEENT--PERRL, EOMI, mucous membranes and oropharynx mildly dry Neck--supple. No JVD. No bruits. Thyroid normal, trachea midline, no adenopathy. Heart--normal S1 and S2. No murmurs, rubs or gallops. Lungs--clear bilaterally, no respiratory distress, no accessory muscle use. Abdomen--normal bowel sounds and soft. Mild epigastric and left sided abdominal pain Extremities--no cyanosis or clubbing. No edema. Dermatologic--normal skin turgor, normal color, no abnormal lymph nodes, no rash. Neurologic--cranial nerves II through XII grossly intact. Rheumatologic--normal range of motion. Psychiatric--normal affect. Discharge Data Allergies Allergy/AdvReac Type Severity Reaction Status Date / Time peanut Allergy Verified 12/29/22 12:18 codeine AdvReac Verified 12/29/22 12:18 metronidazole [From Flagyl] AdvReac Verified 12/29/22 12:18 Consultations 12/29/22 19:05 Consult Gastroenterology Routine Ordered Studies 12/29/22 13:05 MR MRCP Urgent Hospital Course (1) Nausea: Unclear cause, possibly gastritis from food poisoning. Now resolved She said it started after eating chicken wings Pt transferred for GI to consider ERCP however normal LFTs and no substantial RUQ pain. MRCP normal (2) Globus pharyngeus: Globus sensation, according to patient a feeling of cotton wool in her throat has had esophageal candidiasis in the past No plans for EGD per GI continue treatment for thrush with Clotrimazole troches (3) Abdominal pain: MRCP negative for choledocholithiasis pain is now resolved (4) Anxiety: Continue Lexapro and duloxetine (5) Asthma: No current exacerbation suspected Continue Advair diskus or hospital formulary equivalent (6) Constipation: Given current diarrhea will d/c her docusate (7) GERD (gastroesophageal reflux disease): Continue pantoprazole, famotidine. Possible cause of symptoms above. (8) Osteoporosis: (9) Tobacco user: Nicotine patch Discussed smoking cessation (10) Urinary incontinence: (11) Allergic rhinitis: Plan VTE Prophylaxis - low risk Diet - NPO Disposition - hopefully d/c in the next 24 hrs Total Time Total Time Spent Total Time Spent (In Minutes): 35 Discharge Plan Discharge Items Patient Disposition: Home - Self-Care Reason For Visit: CHOLEDOCHOLITHIASIS Discharge Diagnosis: acute gastritis Activity: Resume your previous activity Non-emergency contact: Primary Care Provider Call non-emergency contact if: you have any medication questions Follow-up/Referrals: PCP,NO [Primary Care Provider] - Diet: Regular Addtl Attending Provider Instructions: please follow up with gastroenterology Pending Studies at Discharge: No Stand-Alone Forms: [employer], Smoking Cessation Medications and DC Order Prescriptions: New fluticasone furoate-vilanterol [Breo Ellipta] 200-25 mcg/dose Blister With Device 1 ea inhalation DAILY PRN (Reason: wheezing) Qty: 60 0RF clotrimazole 10 mg Charla 10 mg buccal [id number] 5 Days Qty: 20 0RF Continued atorvastatin 40 mg tablet 40 mg PO DAILY fluticasone propion-salmeterol [Advair Diskus] 250-50 mcg/dose blister with device 1 inh INHALATION BID gabapentin 600 mg tablet 600 mg PO TID ondansetron 4 mg tablet,disintegrating 4 mg PO Q4H PRN (Reason: Nausea) escitalopram oxalate 10 mg tablet 10 mg PO BID famotidine 20 mg tablet 20 mg PO BID baclofen 10 mg tablet 10 mg PO TID PRN (Reason: Muscle Spasm) pantoprazole 40 mg tablet,delayed release (DR/EC) 40 mg PO BID diclofenac sodium 75 mg tablet,delayed release (DR/EC) 75 mg PO BID PRN (Reason: Pain) duloxetine 60 mg capsule,delayed release(DR/EC) 60 mg PO BID fluticasone propion-salmeterol [Advair Diskus] 250-50 mcg/dose blister with device 1 inh INHALATION BID azelastine 137 mcg (0.1 %) aerosol,spray 2 spray INTRANASAL DAILY PRN (Reason: Congestion) docusate sodium 100 mg capsule 100 mg PO BID ascorbic acid (vitamin C) [Vitamin C] 500 mg tablet 500 mg PO DAILY montelukast 10 mg tablet 10 mg PO DAILY Vitamin D3 1,000 units PO DAILY Xyzal 5 mg PO DAILY [id number] 1 tab DAILY Discontinued clotrimazole 10 mg charla 10 mg mucous membrane 5XD Discharge Orders: Discharge Order (Routine); Ordered 12/31/22 Ordered By: Farzana Dave Admission Data Admit Date/Time: 12/29/22 11:56 Attending Provider: Farzana Dave Admit Provider: Acacia Horner Primary Care Provider: PCP,NO Other Providers: Lauro Smith Jr Other Interventions: Discharge Summary Assessment (RN) Last Done: 12/31/22 12:08 Coding Level of Care Code 43587 INP/OBS DISCH >30 MIN Diagnoses Nausea R11.0 Globus pharyngeus R09.89 Abdominal pain R10.9 Anxiety F41.9 Asthma J45.909 Constipation K59.00 GERD (gastroesophageal reflux disease) K21.9 Osteoporosis M81.0 Tobacco user Z72.0 Urinary incontinence R32 Allergic rhinitis J30.9 Time Spent (min) 35
--- NOTE | 2023-01-01 05:39 | Electrocardiogram Report ---
Test Reason : Blood Pressure : / mmHG Vent. Rate : 079 BPM Atrial Rate : 079 BPM P-R Int : 140 ms QRS Dur : 084 ms QT Int : 378 ms P-R-T Axes : 053 054 032 degrees QTc Int : 433 ms Normal sinus rhythm with sinus arrhythmia Nonspecific T wave abnormality No previous ECGs available Confirmed by Kevin Klein ([id number]) on 01/01/2023 5:38:42 AM Referred By: Acacia Horner Confirmed By:Kevin Klein
== END 2022-12-31 14:17 | disposition home or self-care (01) ==
LOC: INTOOBSV 11:56 → 2N 11:56 → SUATTDRO 11:56
DX: R32 Unspecified urinary incontinence; J30.9 Allergic rhinitis, unspecified; M81.0 Age-related osteoporosis without current pathological fracture; K59.00 Constipation, unspecified; J45.909 Unspecified asthma, uncomplicated; K29.00 Acute gastritis without bleeding; Z88.5 Allergy status to narcotic agent; R09.89 Other specified symptoms and signs involving the circulatory and respiratory systems; Z91.010 Allergy to peanuts; F17.210 Nicotine dependence, cigarettes, uncomplicated